=== PATIENT | male | born 1980 | race Caucasian/White ===

== ENCOUNTER → 2018-06-18 22:04 | Outpatient (CLI) | payer OTHER, SELFPAY ==
[2018-06-18 22:18] LABS: Absolute Lymphocyte Count 3.05 X10^3/ul (0.83-4.51); Basophil# 0.05 X10^3/uL; Basophil% 0.5 % (0-1); Eosinophil# 0.19 X10^3/uL; Eosinophils% 1.9 % (0-5); Hematocrit 46.2 % (40-54); Hemoglobin 15.9 g/dl (13.0-16.5); Lymphocyte # 3.05 X10^3/ul (4.0); Lymphocyte % 29.9 % (19-41); Mean Corp Hgb Conc 34.4 g/gl (32-36); Mean Corpuscular Hgb 29.2 pg (27.0-32.0); Mean Corpuscular Volume 84.9 fL (80-94); Mean Platelet Vol. 10.3 fl (6.2-12.0); Monocyte% 8.8 % (0-10); Neutrophil # 5.99 X10^3/uL (2.7-7.7); Neutrophil % 58.6 % (47-70); Platelet Count 251 K/mm3 (150-450); RBC Distribution Width CV 12.4 % (11.6-14.6); RBC Distribution Width SD 37.7 fl (35.1-43.9); Red Blood Count 5.44 M/mm3 (4.6-6.2); White Blood Count 10.2 K/mm3 (4.4-11.0)
[2018-06-18 22:20] LABS: POSITIVE COUNT NO; POSITIVE DIFFERENTIAL NO; POSITIVE MORPHOLOGY NO
[2018-06-18 22:42] LABS: BUN 13 mg/dL (7-18); Creatinine, Serum 0.82 mg/dL (0.70-1.30); Glucose 108 mg/dL (74-106)
[2018-06-18 22:43] LABS: ALB/GLOB Ratio 1.2 RATIO (0.9-2.4); AST(SGOT) 31 U/L (15-37); Alanine Aminotransfer ALT/SGPT 57 U/L (16-61); Albumin, Serum 4.5 g/dL (3.2-5.0); Alkaline Phosphatase 95 U/L (45-117); Amylase 27 U/L (25-115); Anion Gap 10 (5-15); BUN/Creat Ratio 15.9 RATIO (10-20); Calcium,Total 9.2 mg/dL (8.5-10.1); Chloride 100 mmol/L (98-107); EST Glomerular Filtration Rate 112 mL/min (>60); Est Glom Filt Rate - Afr Amer 135 mL/min (>60); Globulin 3.7 g/dL (2.2-4.2); Lipase 154 U/L (73-393); Potassium 3.7 mmol/L (3.5-5.1); Protein, Total 8.2 g/dL (6.4-8.2); Sodium Level 134 mmol/L (136-145)
== END ==
PROVIDERS: Family Provider Nurse Practitioner; PCP Nurse Practitioner; Visit Provider Nurse Practitioner
DX: R10.11 Right upper quadrant pain (principal); R53.83 Other fatigue; K59.00 Constipation, unspecified
CPT/HCPCS: 80053; 82150; 83690; 84443; 85025

== ENCOUNTER → 2018-06-23 07:38 | Outpatient (CLI) | payer OTHER, SELFPAY ==
--- NOTE | 2018-06-23 07:46 | US_ITS ---
STUDY: ABDOMINAL ULTRASOUND - RIGHT UPPER QUADRANT REASON FOR VISIT: Male, 38 years old. Right upper quadrant and epigastric pain, intermittently for 2 months. Constipation.. TECHNIQUE: Ultrasound evaluation of the right upper quadrant was performed with real-time and static lal-scale imaging. TECHNICAL QUALITY: Adequate. COMPARISON: Gallbladder ultrasound, April 18, 2014. FINDINGS: Liver: The liver measures 19.5 cm. There is increased echogenicity consistent with fatty infiltration. The bile ducts are within normal limits. There is hepatic color flow. The direction of portal flow is hepatopetal. There is no demonstrated mass lesion. Gallbladder: Normal distended gallbladder. The gallbladder wall measures 2.4 mm. There is a negative sonographic Vallejo's sign. There is no pericholecystic fluid. There are no gallstones. Common Bile Duct (C.B.D.): The common bile duct measures 4.6 mm. Pancreas: Normal size of the head, body and tail of the pancreas. There is normal echogenicity of the pancreas. There is no demonstrated pancreatic mass or cyst. Right Kidney: Normal size of the right kidney. The right kidney measures 13.2 cm. Normal renal cortex. The right cortex measures 1.8 cm. There is no demonstrated renal mass or cyst. There is no right hydronephrosis. US/Gallbladder IMPRESSION: 1. Hepatomegaly with diffuse fatty infiltration of the liver. There is no focal mass. 2. Normal gallbladder and biliary ductal system. Electronically Signed: Marcus Watkins DO at 23:57 EDT Tel [phone], Service support ,
== END ==
PROVIDERS: Family Provider Nurse Practitioner; PCP Nurse Practitioner; Visit Provider Nurse Practitioner
DX: R10.11 Right upper quadrant pain (principal); K59.00 Constipation, unspecified
CPT/HCPCS: 76705

== ENCOUNTER → 2018-07-29 16:30 | Outpatient (CLI) | payer OTHER, SELFPAY ==
--- NOTE | 2018-07-29 16:31 | CT_ITS ---
STUDY: CT ABDOMEN WITH CONTRAST REASON FOR EXAM: Male, 38 years old. Right upper quadrant pain RADIATION DOSAGE (If Supplied By Facility): CTDIvol = ( 40.91 ) mGy, DLP = ( 1826.99 ) mGycm TECHNIQUE: Transaxial images were obtained post I.V. administration of 100 ml of Isovue 300 contrast, and oral contrast. Sagittal and coronal images were reconstructed. Individualized dose optimization techniques were used for this CT. COMPARISON: None. FINDINGS: The lung bases are clear. The liver is normal. No dilated intrahepatic biliary radicles. The gallbladder is normal with no calcifications within it. There is no pericholecystic fluid collection or streakiness The spleen is normal. The pancreas is normal. Both adrenals are normal. The kidneys are normal with no masses, calculi or hydronephrosis There is a small hiatal hernia. There is no bowel distention, acute appendicitis or diverticulitis. No constricting lesions are seen in large bowel. The abdominal wall is intact with no hernias. There is no ascites or any free intraperitoneal air. No indication of epiploic appendagitis The vascular structures in the retroperitoneum are normal. There is no retrocrural, retroperitoneal or mesenteric adenopathy. There are degenerative changes involving the lower thoracic spine The urinary bladder is normal.--The prostate is normal. There is no inguinal or pelvic adenopathy. There is no inguinal hernia. . CT/Abdomen/Pelvis WITH Contrast IMPRESSION: No acute findings in the abdomen or pelvis. Specifically there is no acute appendicitis or diverticulitis. A small hiatal hernia Electronically Signed: Matt Mcmahan MD at 7:16 EDT Tel , Service support ,
== END ==
PROVIDERS: Family Provider Nurse Practitioner; PCP Nurse Practitioner
DX: R10.84 Generalized abdominal pain (principal)
CPT/HCPCS: 74177; Q9967

== ENCOUNTER → 2020-05-21 20:47 | Outpatient (CLI) | payer OTHER, SELFPAY ==
[2020-05-21 19:06] VITALS: BMI 43.9
[2020-05-21 20:57] LABS: Absolute Lymphocyte Count 3.39 X10^3/uL (0.83-4.51); Absolute Neutrophil Count 4.1 X10^3/uL (2.0-7.7); Basophil# 0.09 X10^3/uL; Basophil% 1.1 % (0-1); Eosinophils% 2.3 % (0-5); Hematocrit 48.7 % (40-54); Hemoglobin 16.9 g/dL (13.0-16.5); Lymphocyte # 3.39 X10^3/ul (4.0); Lymphocyte % 39.8 % (19-41); Mean Corp Hgb Conc 34.7 g/dL (32-36); Mean Corpuscular Hgb 29.3 pg (27.0-32.0); Mean Corpuscular Volume 84.4 fL (80-94); Mean Platelet Vol. 10.7 fl (6.2-12.0); Monocyte# 0.68 X10^3/uL; NRBC Flagged by Analyzer 0 % (0-5); Neutrophil # 4.12 X10^3/uL (2.7-7.7); Neutrophil % 48.3 % (47-70); Platelet Count 241 K/mm3 (150-450); RBC Distribution Width CV 11.9 % (11.6-14.6); RBC Distribution Width SD 35.7 fl (35.1-43.9); Red Blood Count 5.77 M/mm3 (4.6-6.2); White Blood Count 8.5 K/mm3 (4.4-11.0)
[2020-05-21 21:20] LABS: ALB/GLOB Ratio 1.2 RATIO (0.9-2.4); AST(SGOT) 37 U/L (15-37); Alanine Aminotransfer ALT/SGPT 88 U/L (16-61); Albumin, Serum 4.5 g/dL (3.2-5.0); Alkaline Phosphatase 111 U/L (45-117); Anion Gap 7 (5-15); BUN 12 mg/dL (7-18); Calcium,Total 9.4 mg/dL (8.5-10.1); Chloride 97 mmol/L (98-107); Cholesterol 203 mg/dL (200); Creatinine, Serum 0.93 mg/dL (0.70-1.30); EST Glomerular Filtration Rate 96 mL/min (>60); Est Glom Filt Rate - Afr Amer 116 mL/min (>60); Globulin 3.6 g/dL (2.2-4.2); Glucose 259 mg/dL (74-106); High Density Lipoprotein 26 mg/dL; Protein, Total 8.1 g/dL (6.4-8.2); Sodium Level 134 mmol/L (136-145); Triglycerides 551 mg/dL
== END ==
PROVIDERS: PCP Nurse Practitioner; Visit Provider Nurse Practitioner
DX: I10 Essential (primary) hypertension (principal)
CPT/HCPCS: 80053; 80061; 85025

== ENCOUNTER 2021-04-15 12:17 | Emergency (ER) | payer OTHER, SELFPAY ==
[2020-05-21 19:06] VITALS: BMI 43.9
[2021-04-15 12:18] VITALS: BP 184/90; PULSE 79; RESP 18; TEMP 36.1; O2SAT 95; BMI 42.0
--- NOTE | 2021-04-15 13:22 | EDS_ITS ---
HPI History of Present Illness Chief Complaint: Dizziness Informant: patient Onset/Context/Timing Onset: Days (10) Context: Sudden Onset Timing: Intermittent and Lasts (2 hours today was the longest episode) Quality: Spinning/movement/off balance Current Severity: Mild Maximum Severity: Moderate Worsened by: Movements especially with head Relieved by: Remaining still Associated Symptoms Associated Symptoms: A little nausea. Left ear ache off-and-on for the last 2 weeks Narrative Narrative: Patient presenting with vertiginous symptoms. States he has had these in the past, last 10 days along with an earache on the left side that has been off and on. No fevers, chills, cough, shortness of breath, or vomiting. No headaches. [facility] Medical History (Updated 04/15/21 @ 13:[address] Jatinder Slade MD) Anxiety Depression Hypertension Home Medications duloxetine 30 mg capsule,delayed release 30 mg PO QDAY #90 cap 05/21/20 [Rx Last Taken Unknown] losartan 100 mg-hydrochlorothiazide 12.5 mg tablet 1 tab PO QDAY #90 tab 05/21/20 [Rx Last Taken Unknown] metoprolol succinate 50 mg tablet,extended release 24 hr 50 mg PO QDAY #90 tab 05/21/20 [Rx Last Taken Unknown] amoxicillin-pot clavulanate 875 mg PO Q12H #20 tablet 04/15/21 [Rx Last Taken Unknown] meclizine 25 mg PO Q8H PRN PRN #20 tab 04/15/21 [Rx Last Taken Unknown] Allergy/AdvReac Type Severity Reaction Status Date / Time amlodipine [From [facility]] AdvReac Severe decrease Verified 03/04/18 16:25 libido cephlexin Allergy Severe hives Uncoded 03/04/18 16:25 Family History Other Diabetes Hypertension Kidney disease hx of bowel disease Surgical History History of umbilical hernia Social History Smoking Status: Never smoker alcohol intake: never substance use type: does not use ROS ROS ED Constitutional Constitutional ED: Denies chills or fever(s) Eyes Eyes: Reports blurry vision bilateral (Intermittent; only when dizzy); Denies diplopia ENT ENT ED: Reports ear pain left; Denies ear discharge, hearing loss, rhinorrhea or sore throat Cardiovascular Cardiovascular: Denies chest pain or palpitations Respiratory/Chest Respiratory/Chest: Denies cough or dyspnea Gastrointestinal Gastrointestinal: Denies abdominal pain, diarrhea, nausea or vomiting Genitourinary Genitourinary ED: Denies dysuria or hematuria Musculoskeletal Musculoskeletal: Denies back pain or neck pain Integumentary Denies abscess or rash Neurologic Neurologic: Reports as per HPI and vertigo; Denies headache(s), paresthesias or weakness Psychiatric Psychiatric: Denies anxiety or suicidal thoughts EXAM Physical Exam Const Vital Signs: 04/15/21 12:18 Temperature 96.9 F L Temperature Source Temporal Pulse Rate 79 Respiratory Rate 18 Blood Pressure 184/90 H Blood Pressure Mean 121 Pulse Ox 95 Oxygen Delivery Method Room Air Positive well nourished and well developed General Appearance ED: well developed and NAD HEENT Reports moist mucous membranes HEENT Narrative: Left TM erythematous. Right TM normal. No sign of perforation. No pain with pulling on the pinna or tragus bilaterally. No lewis sign or mastoid tenderness/erythema/swelling. normocephalic and atraumatic Eyes PERRL and EOMs intact bilaterally Neck full ROM and supple Resp normal respiratory effort and clear to auscultation bilaterally Cardio regular rate, regular rhythm and no murmurs Back/Spine no CVA tenderness General Back: other FROM Extremity normal to inspection General Extremety ED: Negative for edema, pulses abnormal or tenderness General Extremity: Negative for edema or pulses abnormal Neuro oriented x3, CN's II-XII intact bilaterally and no sensory deficits noted Neuro Narrative: Normal [id number], [id number], and Romberg Sensorium / Orientation: awake and alert Motor Exam: strength 5/5 throughout Skin no rashes or lesions noted and no wounds MDM MDM MDM Narrative Medical decision making narrative: Patient is reassured this is likely peripheral vertigo, probably related to his apparent left ear infection. He will be treated symptomatically for the vertigo and with an antibiotic for the ear infection, will be treated with Augmentin. Advise follow-up if it does not improve. Discharge Plan Triage Chief Complaint: Dizziness ED Provider: Jatinder Slade Dx/Rx/DC Orders Clinical Impression: Acute left otitis media, Peripheral vertigo involving left ear Instructions: ED Otitis Media Antibiotic ..., ED Vertigo, Unspecified Prescriptions: New meclizine [meclizine] 25 MG tablet 25 mg PO Q8H PRN PRN (Reason: Dizziness) Qty: 20 RF: 0 amoxicillin-pot clavulanate [amoxicillin-pot clavulanate] 875 MG tablet 875 mg PO Q12H Qty: 20 RF: 0 No Action duloxetine 30 mg capsule,delayed release(DR/EC) 30 mg PO QDAY Qty: 90 RF: 3 losartan-hydrochlorothiazide 100-12.5 mg tablet 1 tab PO QDAY Qty: 90 RF: 3 metoprolol succinate 50 mg tablet extended release 24 hr 50 mg PO QDAY Qty: 90 RF: 3 Primary Care Provider: Morenita Hernandez Referrals: Morenita Hernandez MD [Primary Care Provider] - Disposition Disposition: Home, Self Care
[2021-04-15] MEDS: Meclizine HCl 25 MG Tablet PO (13:28)
== END 2021-04-15 13:42 | disposition home or self-care (01) ==
PROVIDERS: Emergency Provider Emergency Medicine; PCP Family Medicine
DX: H66.92 Otitis media, unspecified, left ear (principal); H81.392 Other peripheral vertigo, left ear; I10 Essential (primary) hypertension; F32.9 Major depressive disorder, single episode, unspecified; Z79.899 Other long term (current) drug therapy
CPT/HCPCS: 99283